=== PATIENT | male | born 1960 | race Caucasian/White ===

== ENCOUNTER 2016-09-28 01:01 | Emergency (ER) | payer SELFPAY ==
[~2016-09-28] VITALS: Ht 172.7 cm; Wt 77.1 kg
[2016-09-28 01:16] VITALS: BP 121/52
--- NOTE | 2016-09-28 01:16 | NUR ---
PT BIB [employer]/RA 39, PT C/O "HAVING THE SHAKES, LAST HAD A DRINK X 3 DAYS AGO" PT AOX3 RR EVEN AND UNLABORED. NO SOB NOTED. NAD NOTED. NO NVD AT THIS TIME. PT NOT DIAPHORETIC. PT WAITING FOR MD GRIMALDO. PT PLACED ON MONITOR. [employer] AT BEDSIDE
--- NOTE | 2016-09-28 01:17 | NUR ---
DR. BLANDON AT BEDSIDE FOR EVAL.
[2016-09-28] MEDS ORDERED: CHLORDIAZEPOXIDE HCL 25 MG CAPSULE ONE (01:18)
--- NOTE | 2016-09-28 01:25 | NUR ---
PT MEDICATED. PT D/C UNDER [employer] CUSTODY. Written and verbal after care instructions given. Patient verbalizes understanding of instruction.
[2016-09-28] MEDS ORDERED: CHLORDIAZEPOXIDE HCL 25 MG CAPSULE PO ONE (01:30)
== END 2016-09-28 01:28 ==
LOC: ER 01:03
DX: Z00.8 Encounter for other general examination (principal)
CPT/HCPCS: A4606; Z7610

== ENCOUNTER 2017-02-03 15:43 | Inpatient (IN) | payer MEDICAID ==
[~2017-02-03] VITALS: Ht 167.6 cm; Wt 82.6 kg
[2017-02-03] MEDS ORDERED: ONDANSETRON HCL/PF 4 MG/2 ML VIAL IVP ONE (16:00)
[2017-02-03] MEDS ORDERED: Thiamine 100 MG in IV D5W 50 ML IV SCH (16:00)
[2017-02-03] MEDS ORDERED: IV NS 0.9% 1,000 ML BAG IV ONE (16:00)
--- NOTE | 2017-02-03 16:30 | NUR ---
PATIENT TAKEN TO CT VIA WHEELCHAIR.
--- NOTE | 2017-02-03 16:30 | NUR ---
PATIENT PRESENTS TO ER DUE TO SYNCOPAL EPISODE. PATIENT ADMITS TO USING ALCOHOL. PATIENT IS A/OX4 AT THIS TIME. BREATHING EVEN AND UNLABORED. NO SOB. VITALS STABLE. SAFETY AND COMFORT MEASURES IN PLACE. AWAITING MD ORDER.
--- NOTE | 2017-02-03 16:40 | NUR ---
PATIENT RETURNED FROM CT.
[2017-02-03 17:14] LABS: APPEARANCE,URINE CLEAR (CLEAR); BILIRUBIN,URINE NEGATIVE (NEGATIVE); BLOOD, URINE NEGATIVE Ery/uL (NEGATIVE); COLOR,URINE YELLOW (YELLOW); KETONES,URINE NEGATIVE (NEGATIVE); LEUKOCYTE ESTERASE ,URINE NEGATIVE (NEGATIVE); NITRITE, URINE NEGATIVE (NEGATIVE); PH,URINE 5.5 (5.0-8.0); PROTEIN,URINE NEGATIVE (NEGATIVE); UGLUCOSE NEGATIVE (NEGATIVE); UROBILINOGEN,URINE 0.2 EU/dL (0.2)
[2017-02-03] MEDS ORDERED: ONDANSETRON HCL/PF 4 MG/2 ML VIAL ONE (17:34)
[2017-02-03 17:41] LABS: BASOPHILS % (AUTO) 0.5 % (0.0-2.0); EOSINOPHILS # (AUTO) 0.1 /CMM (0.0-0.7); EOSINOPHILS % (AUTO) 1.8 % (0.0-6.0); HEMATOCRIT 34 % (39-51); HEMOGLOBIN 11.2 g/dL (13.5-17.5); LYMPHOCYTES # (AUTO) 2.3 /CMM (0.8-4.8); LYMPHOCYTES % (AUTO) 31.4 % (20.0-44.0); MEAN CORPUSCULAR HEMOGLOBIN 32 PG (26.0-33.0); MEAN CORPUSCULAR HGB CONC 33 g/dl (31.0-36.0); MEAN CORPUSCULAR VOLUME 99 fL (80-96); MONOCYTES # (AUTO) 0.5 /CMM (0.1-1.30); MONOCYTES % (AUTO) 7.2 % (2.0-12.0); NEUTROPHILS # (AUTO) 4.3 /CMM (1.8-8.9); NEUTROPHILS % (AUTO) 59.1 % (43.0-81.0); PLATELET COUNT (AUTO) 319 /CMM (150-450); RED BLOOD CELL COUNT(AUTO) 3.45 MIL/uL (4.5-6.0); WHITE BLOOD COUNT (AUTO) 7.2 K/uL (4.3-11.0)
[2017-02-03 18:05] LABS: ALANINE AMINOTRANSFERASE 37 U/L (12-78); ALBUMIN 3.7 g/dL (3.4-5.0); ALCOHOL, BLOOD 87 mg/dL (0-0); ALKALINE PHOSPHATASE 65 U/L (46-116); ASPARTATE AMINOTRANSFERASE 30 U/L (15-37); BILIRUBIN,DIRECT 0.1 mg/dL (0.0-0.2); BILIRUBIN,TOTAL 0.2 mg/dL (0.2-1.0); CALCIUM, SERUM 8.9 mg/dL (8.5-10.1); CARBON DIOXIDE 29 mmol/L (21-32); CHLORIDE 103 mmol/L (98-107); CREATININE 0.7 mg/dL (0.6-1.3); GLUCOSE 102 mg/dL (74-106); POTASSIUM 4.2 mmol/L (3.5-5.1); SODIUM SERUM 138 mmol/L (136-145); TOTAL PROTEIN, SERUM 7.8 g/dL (6.4-8.2)
[2017-02-03 18:11] LABS: SALICYLATE 2.4 mg/dL (2.8-20.0)
[2017-02-03 18:12] LABS: ACETAMINOPHEN < 10 ug/ml (10-30)
[2017-02-03 18:16] LABS: UREA NITROGEN, BLOOD 14 mg/dL (7-18)
--- NOTE | 2017-02-03 18:29 | NUR ---
PAGED NOVELTY CHAIN MAKER PANEL
[2017-02-03] MEDS ORDERED: Magnesium 1GM/D5W 100ML PREMIX 100 ML IV ONE (18:35)
[2017-02-03] MEDS: Magnesium 1GM/D5W 100ML PREMIX 100 ML IV SCH ×2 (18:40→19:33)
--- NOTE | 2017-02-03 19:15 | NUR ---
REPORT GIVEN TO PREETHI RAM FOR BRI.
[2017-02-03 19:30] VITALS: BP 122/73
[2017-02-03] MEDS ORDERED: HYDROCODONE/APAP 5/325MG 1 EACH TABLET PO PRN (19:30)
[2017-02-03] MEDS ORDERED: ONDANSETRON HCL/PF 4 MG/2 ML VIAL IVP PRN (19:30)
[2017-02-03] MEDS ORDERED: Z GUARD REMEDY 2 OZ OINT TP PRN (19:30)
[2017-02-03] MEDS ORDERED: MAG HYDROX/AL HYDROX/SIMETH 30 ML UDC PO PRN (19:30)
[2017-02-03] MEDS ORDERED: MAGNESIUM HYDROXIDE 30 ML UDC PO PRN (19:30)
[2017-02-03] MEDS ORDERED: ACETAMINOPHEN 325 MG TABLET PO PRN (19:30)
[2017-02-03] MEDS ORDERED: ZOLPIDEM TARTRATE 5 MG TABLET PO PRN (19:30)
--- NOTE | 2017-02-03 19:30 | NUR ---
ELEMENTARY MATH TUTOR OPENING NOTES: RECEIVED PT FROM RNGRACIELA. PT IS A/OX3-4. PT HAS IV ON R AC#18G AND IS CURRENTLY BEING INFUSED WITH 1 BAG OF MAGNESIUM. AWAITING ADMISSION ORDERS. CALL LIGHT WITHIN PT'S REACH. BED KEPT IN LOW, LOCKED POSITION, AND SIDE RAILS X 2 UP. WILL CONTINUE TO MONITOR PT.
--- NOTE | 2017-02-03 19:30 | NUR ---
2ND BAG OF MAGNESIUM ENDORSE TO PREETHI RAM. 1ST BAG INFUSING IN ER.
--- NOTE | 2017-02-03 19:36 | NUR ---
PATIENT TRANSPORTED TO [facility] FOR ADMISSION. PREETHI RAM TO PROVIDE BRI.
[2017-02-03] MEDS ORDERED: Magnesium 1GM/D5W 100ML PREMIX 100 ML IV SCH (20:00)
[2017-02-03] MEDS: IV NS 0.9% 1,000 ML IV PRN (20:15)
[2017-02-03 20:30] VITALS: BP 122/73
[2017-02-03] MEDS ORDERED: LORAZEPAM INJ 2 MG/ML VIAL IV PRN (21:00)
[2017-02-04] VITALS: BP 96/50
[2017-02-04 04:00] VITALS: BP 135/64
--- NOTE | 2017-02-04 07:15 | NUR ---
SERVICE STATION CASHIER CLOSING NOTES: ALL NEEDS WERE ATTENDED AND ANTICIPATED FOR. PT HAS IV ON R AC#18G AND IS BEING INFUSED WITH NS AT 75ML/HR. PT IS ON TELE MONITOR AND IS SR 60S. URINAL AT BEDSIDE AND OUTPUT WAS 1750ML. CALL LIGHT WITHIN PT'S REACH. BED KEPT IN LOW, LOCKED POSITION, AND SIDE RAILS X 2 UP. ENDORSED TO AM NURSE FOR BRI.
[2017-02-04] MEDS ORDERED: PANTOPRAZOLE 40 MG TABLET.DR PO SCH (07:30)
--- NOTE | 2017-02-04 07:30 | NUR ---
RN OPEN NOTES RECEIVED REPORT FROM CEMENTER NURSE. PATIENT IS IN BED, ALERT AND ORIENTED TO NAME, PLACE AND TIME. BED IN LOW POSITION, LOCKED AND TWO SIDE RAILS ARE UP. NO SIGNS AND SYMPTOMS OF DISTRESS OR PAIN. WILL CONTINUE TO ASSESS AND MONITOR PATIENT THROUGH OUT MY SHIFT.
[2017-02-04 08:00] VITALS: BP 137/54
[2017-02-04 08:10] LABS: CALCIUM, SERUM 8.5 mg/dL (8.5-10.1); CREATININE 0.6 mg/dL (0.6-1.3); MAGNESIUM 1.7 mg/dL (1.8-2.4); POTASSIUM 4.6 mmol/L (3.5-5.1)
[2017-02-04 10:04] LABS: BASOPHILS % (AUTO) 0.8 % (0.0-2.0); EOSINOPHILS # (AUTO) 0.2 /CMM (0.0-0.7); EOSINOPHILS % (AUTO) 2.8 % (0.0-6.0); HEMATOCRIT 32 % (39-51); HEMOGLOBIN 10.5 g/dL (13.5-17.5); LYMPHOCYTES # (AUTO) 1.9 /CMM (0.8-4.8); LYMPHOCYTES % (AUTO) 32.7 % (20.0-44.0); MEAN CORPUSCULAR HEMOGLOBIN 33 PG (26.0-33.0); MEAN CORPUSCULAR HGB CONC 33 g/dl (31.0-36.0); MEAN CORPUSCULAR VOLUME 99 fL (80-96); MONOCYTES # (AUTO) 0.7 /CMM (0.1-1.30); MONOCYTES % (AUTO) 12.3 % (2.0-12.0); NEUTROPHILS # (AUTO) 2.9 /CMM (1.8-8.9); NEUTROPHILS % (AUTO) 51.4 % (43.0-81.0); PLATELET COUNT (AUTO) 250 /CMM (150-450); RDW COEFFICIENT OF VARIATION 16.6 (11.5-15.0); RED BLOOD CELL COUNT(AUTO) 3.21 MIL/uL (4.5-6.0); WHITE BLOOD COUNT (AUTO) 5.7 K/uL (4.3-11.0)
[2017-02-04] MEDS: IV NS 0.9% 1,000 ML IV PRN (11:23)
[2017-02-04 12:00] VITALS: BP 132/66
--- NOTE | 2017-02-04 12:27 | NUR ---
Social service consult for homelessness. Pt. is a 56 year old male who was admitted to [facility] for syncope. SW met with pt. bedside. Pt. is alert and oriented x4. Pt. is pleasant and cooperative with SW during the assessment. Pt. states he is homeless and has been homeless for a while now. Pt. was but is and has a son who is a clinical consultant in [place] and a daughter. Pt. stated his threw him out of the house and he has been homeless since then. Pt. is a heavy alcohol drinker and drinks vodka daily. Pt. has no source of income at this time. Pt. is originally from [place]. Pt. denies suicidal/homicidal ideations and visual/auditory hallucinations at this time. FRAN offered pt. long term placement and homeless resources, however pt. declined. Pt. states he will go back to the streets. SW tried to encourage pt. to take the homeless resources, pt. still declined. FRAN informed pt's RN Yuridia that pt. wants to be discharged back to the streets once medically cleared and declined homeless resources and long term placement.
[2017-02-04] MEDS: Magnesium 1GM/D5W 100ML PREMIX 100 ML IV SCH ×2 (12:36→13:38)
[2017-02-04 16:00] VITALS: BP 142/83
--- NOTE | 2017-02-04 19:09 | NUR ---
TELE / RN CLOSING NOTES PENDING DISCHARGE, PATIENT REFUSED TO GO PATIENT IS IN BED. ALERT AND ORIENTED TO NAME , PLACE AND TIME. BREATHING EVEN AND UNLABORED. NO SIGNS AND SYMPTOMS OF SHORTNESS OF BREATH OR DISTRESS NOTED. BED IN LOW AND IN LOCKED POSITION WITH CALL LIGHT IN REACH. TWO SIDE RAILS ARE UP. WILL ENDORSED TO INTERNATIONAL BANK MANAGER NURSE TO [facility].
--- NOTE | 2017-02-04 19:32 | NUR ---
POWER MACHINE OPERATOR NOTES PATIENT DISCHARGE NOTES RECEIVED AND CARRIED OUT. NO SIGNS AND SYMPTOMS OF DISTRESS, DENIED PAIN. ALL PERSONAL BELONGING WITH PATIENT AT TIME OF DISCHARGE. BELONGING LIST SIGNED AND PLACED IN THE CHART. DISCHARGE INSTRUCTION EXPLAINED TO PATIENT. PATIENT SIGNED ALL DISCHARGE PAPERWORK, FORMS PLACED IN THE CHART. PATIENT REFUSED TO GO TO A CORRECTION AND WANTED TO GO BACK TO THE STREET AT THE [facility]. SOFTWARE DESIGN MANAGER AND MD MADE AWARE. PICTURES WERE TAKEN AND PLACED IN THE CHART. IV SITE REMOVED. ID BAND REMOVED. PATIENT ESCORTED TO MAIN LOBBY WITH A WALKER AND RN. PATIENT STATED HE DOESN'T HAVE A PCP AT THIS TIME. PATIENT ADVISED TO FOLLOW UP WITH A PCP FOR BRI.
== END 2017-02-04 19:32 | disposition home or self-care (01) | DRG 775 ==
LOC: ER 15:44 → TELE 17:56
PROVIDERS: ADMIT Internal Medicine; ATTEND Internal Medicine
DX: F10.229 Alcohol dependence with intoxication, unspecified (principal); E83.42 Hypomagnesemia; I10 Essential (primary) hypertension; E11.9 Type 2 diabetes mellitus without complications; D64.9 Anemia, unspecified; E78.5 Hyperlipidemia, unspecified; E86.0 Dehydration; K21.9 Gastro-esophageal reflux disease without esophagitis; F17.200 Nicotine dependence, unspecified, uncomplicated; Z59.0 Homelessness; G40.909 Epilepsy, unspecified, not intractable, without status epilepticus; Y90.4 Blood alcohol level of 80-99 mg/100 ml; W19.XXXA Unspecified fall, initial encounter; Y92.9 Unspecified place or not applicable
CPT/HCPCS: 36415; 70450-TC; 71010-TC; 80048-TC; 80061-TC; 80076-TC; 80305; 81000-TC; 83735-TC; 84100-TC; 85025-TC; 87081-TC; 93307-TC; A4606; A6402; G0480; J2405; J3411; J3475; J7030; J7042; J7060; Z7610

== ENCOUNTER 2017-06-05 10:47 | Inpatient (IN) | payer SELFPAY ==
[~2017-06-05] VITALS: Ht 167.6 cm; Wt 79.8 kg
--- NOTE | 2017-06-05 10:55 | NUR ---
[id number] FROM THE STREET FOR ETOH INTOXICATION, BS-95MG/DL. PT C/O DIZZINESS, BLOOD PRESSURE LOW. A/OX 3, BUT DROWSY. BREATHING EVEN AND UNLABORED. NO SOB. SAFETY AND COMFORT MEASURES IN PLACE. AWAITING MD ORDERS.
[2017-06-05] MEDS ORDERED: IV NS 0.9% 1,000 ML BAG IV ONE (11:00)
--- NOTE | 2017-06-05 11:05 | NUR ---
NEW IV STARTED ON RAC, 20G. BLOOD DRAWN AND SENT TO LAB.
[2017-06-05 11:11] LABS: BASOPHILS % (AUTO) 0.9 % (0.0-2.0); EOSINOPHILS % (AUTO) 0.6 % (0.0-6.0); HEMATOCRIT 35 % (39-51); LYMPHOCYTES # (AUTO) 0.3 /CMM (0.8-4.8); LYMPHOCYTES % (AUTO) 7.3 % (20.0-44.0); MEAN CORPUSCULAR HEMOGLOBIN 32 PG (26.0-33.0); MEAN CORPUSCULAR HGB CONC 34 g/dl (31.0-36.0); MEAN CORPUSCULAR VOLUME 93 fL (80-96); MONOCYTES # (AUTO) 0.7 /CMM (0.1-1.30); MONOCYTES % (AUTO) 17.3 % (2.0-12.0); NEUTROPHILS # (AUTO) 3.1 /CMM (1.8-8.9); NEUTROPHILS % (AUTO) 73.9 % (43.0-81.0); PLATELET COUNT (AUTO) 200 /CMM (150-450); RDW COEFFICIENT OF VARIATION 16.8 (11.5-15.0); RED BLOOD CELL COUNT(AUTO) 3.79 MIL/uL (4.5-6.0); WHITE BLOOD COUNT (AUTO) 4.1 K/uL (4.3-11.0)
[2017-06-05 11:18] LABS: CREATININE 0.6 mg/dL (0.6-1.3)
[2017-06-05 11:27] LABS: ALBUMIN 3.5 g/dL (3.4-5.0); BILIRUBIN,DIRECT 0.1 mg/dL (0.0-0.2); BILIRUBIN,TOTAL 0.3 mg/dL (0.2-1.0); SALICYLATE 3.6 mg/dL (2.8-20.0); TOTAL PROTEIN, SERUM 7.8 g/dL (6.4-8.2)
--- NOTE | 2017-06-05 11:55 | NUR ---
URINE OBTAINED AND SENT TO LAB.
[2017-06-05 12:28] LABS: APPEARANCE,URINE Clear (CLEAR); BILIRUBIN,URINE Negative (NEGATIVE); BLOOD, URINE Negative Ery/uL (NEGATIVE); COLOR,URINE Yellow (YELLOW); KETONES,URINE Negative (NEGATIVE); LEUKOCYTE ESTERASE ,URINE Negative (NEGATIVE); NITRITE, URINE Negative (NEGATIVE); PH,URINE 5.5 (5.0-8.0); PROTEIN,URINE Negative (NEGATIVE); UGLUCOSE Negative (NEGATIVE); UROBILINOGEN,URINE 0.2 EU/dL (0.2)
--- NOTE | 2017-06-05 18:25 | NUR ---
PATIENT MEDICATED PER MD ORDERS. VITALS REMAIN STABLE. WILL CONTINUE TO MONITOR.
[2017-06-05] MEDS ORDERED: LORAZEPAM INJ 2 MG/ML VIAL ONE (18:26)
[2017-06-05] MEDS ORDERED: LORAZEPAM INJ 2 MG/ML VIAL IV ONE (18:30)
--- NOTE | 2017-06-05 19:02 | NUR ---
REPORT GIVEN TO LUIS ORO FOR BRI.
--- NOTE | 2017-06-05 19:20 | NUR ---
REPORT RECEIVED FROM PREETHI OWENS FOR BRI.
--- NOTE | 2017-06-05 19:24 | NUR ---
DR. OVALLES SPOKE TO DR. AGUILERA REGARDING ADMISSION
[2017-06-05] MEDS ORDERED: MAGNESIUM HYDROXIDE 30 ML UDC PO PRN (21:00)
[2017-06-05] MEDS ORDERED: ZOLPIDEM TARTRATE 5 MG TABLET PO PRN (21:00)
[2017-06-05] MEDS ORDERED: IV D5/ 0.9% NACL 1,000 ML IV PRN (21:00)
[2017-06-05] MEDS ORDERED: Z GUARD REMEDY 2 OZ OINT TP PRN (21:00)
[2017-06-05] MEDS ORDERED: HYDROCODONE/APAP 5/325MG 1 EACH TABLET PO PRN (21:00)
[2017-06-05] MEDS ORDERED: Folic acid 1 MG in IV D5W 50 ML IV SCH (21:00)
[2017-06-05] MEDS ORDERED: ONDANSETRON HCL/PF 4 MG/2 ML VIAL IVP PRN (21:00)
[2017-06-05] MEDS ORDERED: MAG HYDROX/AL HYDROX/SIMETH 30 ML UDC PO PRN (21:00)
--- NOTE | 2017-06-05 21:17 | NUR ---
REPORT GIVEN TO THE FLOOR NURSE - CONTINUE PLAN OF CARE.
--- NOTE | 2017-06-05 21:25 | NUR ---
RN NOTES RECEIVED PT VIA IRENARMARIE FROM [facility] AT 2125. PT CAN WALK TO HIS BED, PT IS A/O X 3 WITH PERIODS OF CONFUSION, ETOH INTOXICATION. TOLERATING ROOM AIR 96%, NO S/S OF DISTRESS. NO COMPLAINS OF PAIN. HEAD TO TOE SKIN ASSESSMENT UNABLE TO ASSESS PT REFUSES SKIN ASSESSMENT AND PICTURE TO BE TAKEN DESPITE RISKS AND BENEFITS. PT DOESNT WANT TO REMOVE HIS PANTS AND SHIRT. SAFETY MEASURES ARE IN PLACE, CALL LIGHT IS IN REACH. WILL CONTINUE TO MONITOR.
[2017-06-05 22:00] VITALS: BP 108/59
[2017-06-05] MEDS ORDERED: Thiamine 100 MG/ML VIAL ONE (22:46)
--- NOTE | 2017-06-05 22:56 | NUR ---
SHINGLE PACKER NOTES FOLIC ACID 1 MG IV NON ADMINISTRATION PER LICENSED TAX CONSULTANT NOT IN STOCK AT THE NIGHT LOCKER CHARGE NURSE ALSO AWARE. Addendum: 06/06/17 at 0334 by ARUNA FLORES RN Jai DE LEON AWARE SPOKE TO DR. WILLY VANCE
[2017-06-05] MEDS: Thiamine 100 MG in IV D5W 50 ML IV SCH (23:12)
[2017-06-05 23:31] VITALS: BP 103/52
[2017-06-06] VITALS (7 sets, daily range): BP systolic 103–136; BP diastolic 51–79
[2017-06-06] MEDS ORDERED: ACETAMINOPHEN 325 MG TABLET ONE (04:07)
[2017-06-06] MEDS: ACETAMINOPHEN 325 MG TABLET PO PRN ×2 (04:10→13:06)
--- NOTE | 2017-06-06 06:18 | NUR ---
[employer] CLOSING NOTES COMFORTABLY ASLEEP IN BED AND EASILY AWAKEN, TOLERATING ROOM AIR 98% RESPIRATIONS EVEN AND UNLABORED. NOT IN S/S DISTRESS. NO DT'S THROUGHOUT THE SHIFT. KEPT CLEAN AND DRY AND COMFORTABLE, GOOD SKIN CARE PROVIDED. ALL NURSING CARE RENDERED. NEEDS ATTENDED AND ANTICIPATED, FREQUENT VISUAL CHECK DONE FOR SAFETY EVERY 2 HOURS. ON LOW BED AT ALL TIMES TO ENSURE SAFETY. SAFE HAZARD FREE ENVIRONMENT PROVIDED. CALL LIGHT WITHIN EASY TO REACH. WILL ENDORSE NEXT SHIFT CONTINUITY OF CARE. ON TELE MONITOR SR 95'S
--- NOTE | 2017-06-06 06:27 | NUR ---
PT MENTAL STATUS NOW MORE ALERT AND ORIENTED X3
[2017-06-06 07:28] LABS: CREATININE 0.9 mg/dL (0.6-1.3); PHOSPHORUS 2.8 mg/dL (2.5-4.9); POTASSIUM 4.1 mmol/L (3.5-5.1)
--- NOTE | 2017-06-06 07:36 | NUR ---
ASBESTOS WORKER NOTES. PT RECEIVED A&0X3, ALERT AND RESTING IN BED. PT TOLERATING ROOM AIR WITH NO SOB. PT REPORTING 2/10 GENERALIZED PAIN. PT WITH IVC AT R AC FLUSHED PATENT WITH SL. PT WITH FOUL ODOR AND WILL NOT REMOVE CLOTHES. ENDORSED PT REFUSED SKIN ASSESSMENT, QUESTIONED AGAIN AND AGAIN REFUSED. BED IN LOWEST LOCKED POSITION WITH HANDRAILSX2 AND CALL NICHOLSON WITHIN REACH.PT BRIEFED ON TODAY'S POC, PT WITHOUT CONCERNS OR COMPLAINTS AT THIS TIME.
[2017-06-06 07:38] LABS: THYROID STIMULATING HORMONE 0.568 uIU/mL (0.358-3.74)
--- NOTE | 2017-06-06 07:49 | NUR ---
SALARY MANAGER NOTES. CRITICAL LAB VALUE MAG 0.9 CALLED TO [facility] ON-CALL DR GROUP PER PROTOCOL AND INTERVENTION FILLED.
[2017-06-06 07:55] LABS: HEMATOCRIT 32 % (39-51); HEMOGLOBIN 10.5 g/dL (13.5-17.5); MEAN CORPUSCULAR HEMOGLOBIN 31 PG (26.0-33.0); MEAN CORPUSCULAR HGB CONC 33 g/dl (31.0-36.0); MEAN CORPUSCULAR VOLUME 95 fL (80-96); PLATELET COUNT (AUTO) 147 /CMM (150-450); RDW COEFFICIENT OF VARIATION 17.9 (11.5-15.0); RED BLOOD CELL COUNT(AUTO) 3.35 MIL/uL (4.5-6.0); WHITE BLOOD COUNT (AUTO) 3.2 K/uL (4.3-11.0)
[2017-06-06 07:57] LABS: MAGNESIUM 0.9 mg/dL (1.8-2.4)
[2017-06-06] MEDS ORDERED: Magnesium 1 GM/2 ML VIAL IV STA (08:06)
[2017-06-06] MEDS ORDERED: Magnesium 1GM/D5W 100ML PREMIX PIGGYBACK IV ONE (08:30)
[2017-06-06] MEDS: Magnesium 1GM/D5W 100ML PREMIX 100 ML IV SCH ×4 (09:06→15:19)
[2017-06-06] MEDS: Folic acid 1 MG in IV D5W 50 ML IV SCH (09:13)
[2017-06-06 10:17] LABS: LYMPHOCYTES % (MANUAL) 37 % (16-48); MONOCYTES % (MANUAL) 4 % (0-11.0); NEUTROPHILS % (MANUAL) 59 (42-76)
--- NOTE | 2017-06-06 11:00 | NUR ---
CANE FURNITURE MAKER NOTES. PT RIPPED OUT IVC.
--- NOTE | 2017-06-06 11:47 | NUR ---
MACHINE II ENGRAVER NOTES. PT ++ MALODOROUS, REMIGIO OK TO PAUSE TELE MONITORING FOR SHOWER. PT RELUCTANT AND UNCOOPERATIVE. PT SHOWERING.
[2017-06-06] MEDS: CHLORDIAZEPOXIDE HCL 25 MG CAPSULE PO SCH ×2 (13:06→17:09)
--- NOTE | 2017-06-06 13:14 | NUR ---
PAPER PATTERN INSPECTOR NOTES. NEW IVC INSITU, L HAND G 22, INTACT AND OPERATIONAL.
--- NOTE | 2017-06-06 13:30 | NUR ---
QUE ORO NOTES. PT HAS AGAIN REMOVED IV. CARPET RENOVATOR REMIGIO INFORMED, CARPET RENOVATOR REQUESTING MAGNESIUM OXIDE 400MG PO. AWARE OF NO IVC STATUS. WILL ORDER. Addendum: 06/06/17 at 1606 by ANTHONY PÉREZ RN TIME ADDENDUM [id number]
--- NOTE | 2017-06-06 14:05 | NUR ---
TEL NOTES. PT AGAIN DISCONNECT IV WITHOUT ASKING OR NOTIFYING. PT REQUESTED AGAIN TO COMPLY WITH RULES.
[2017-06-06] MEDS: LORAZEPAM INJ 2 MG/ML VIAL IV PRN (14:34)
--- NOTE | 2017-06-06 14:38 | NUR ---
CORRESPONDENCE REVIEW CLERK NOTES. PT AGAIN DISCONNECT IV WITHOUT ASKING OR NOTIFYING. PT REQUESTED AGAIN TO COMPLY WITH RULES.
[2017-06-06] MEDS ORDERED: MAGNESIUM OXIDE 400 MG TABLET PO ONE (16:30)
--- NOTE | 2017-06-06 18:32 | NUR ---
TEL RN CLOSING NOTES. PT A&0X2-3, VERY CONFUSED AT TIMES AND UNABLE TO RECALL OR COMPLY WITH DIRECTIONS. PT TOLERATING ROOM AIR WITH NO SOB. PT REPORTING NO PAIN. PT IS WITHOUT IVC PT CONTINUES TO REMOVE THEM, PLATE FORMER REMIGIO AWARE. PT IS WITHOUT TREMORS AT THIS TIME, ENDORSED TO NIGHT NURSE TO CONTINUE TO MONITOR FOR DTs. PT BED IN LOWEST LOCKED POSITION WITH HANDRAILSX3 AND CALL NICHOLSON WITHIN REACH, FREQUENT OBSERVATION REQUIRED FOR SAFETY. ALL DAY SHIFT DUTIES ATTENDED TO AND PT IS WITHOUT CONCERN OR COMPLAINT AT THIS TIME, WILL ENDORSE TO NIGHT NURSE.
--- NOTE | 2017-06-06 19:44 | NUR ---
TELERN FULLY AWAKE, NO NEEDS FOR NOW. SAFETY PRECAUTIONS EMPHASIZED, REVIEWED CALL LIGHT USE. STATED WILL CALL IF NEEDED. CLOSELY WATCHED FOR POSSIBLE DTs.
[2017-06-06] MEDS: Thiamine 100 MG in IV D5W 50 ML IV SCH (21:46)
--- NOTE | 2017-06-06 23:30 | NUR ---
TELERN SLEEPS ON AND OFF, STILL WANTED TO HAVE FOOD. NO DTS. STABLE FOR NOW.
[2017-06-07] VITALS: BP 109/53
[2017-06-07 01:08] VITALS: BP 109/53
[2017-06-07 04:00] VITALS: BP 92/68
--- NOTE | 2017-06-07 06:30 | NUR ---
TELERN FULLY AWAKE, ALL NEEDS ATTENDED STABLE.
--- NOTE | 2017-06-07 07:30 | NUR ---
[employer]IDD[employer] SCHOOL ART TEACHER OPENING NOTES. RECEIVED PT A&0X2-3, UKRAINIAN/ROMANIAN SPEAKING. TELE SR. PT TOLERATING ROOM AIR WITH NO SOB. PT REPORTING NO PAIN. PT NOW WITH IVC AT L WRIST G#22, INTACT AND NS FLUSHED PATENT. PT REQUESTEDX3 NOT REMOVE IT. PT WITHOUT TREMORS AT THIS TIME AND IS A FEBRILE. PT CONTINUES TO REFUSE SKIN ASSESSMENT. PT BRIEFED ON TODAY'S POC AND [facility] EXPECTATIONS/RULES EXPLAINED. PT BED IN LOWEST LOCKED POSITION WITH HANDRAILSX2 AND CALL NICHOLSON WITHIN REACH. PT WITHOUT CONCERN OR COMPLAINT AT THIS TIME.
[2017-06-07 07:34] LABS: CREATININE 0.9 mg/dL (0.6-1.3); MAGNESIUM 1.5 mg/dL (1.8-2.4); PHOSPHORUS 3.5 mg/dL (2.5-4.9); POTASSIUM 4.3 mmol/L (3.5-5.1)
[2017-06-07 07:45] LABS: BASOPHILS % (AUTO) 1.4 % (0.0-2.0); EOSINOPHILS % (AUTO) 0.9 % (0.0-6.0); HEMATOCRIT 31 % (39-51); HEMOGLOBIN 10.5 g/dL (13.5-17.5); LYMPHOCYTES # (AUTO) 1.3 /CMM (0.8-4.8); LYMPHOCYTES % (AUTO) 40.5 % (20.0-44.0); MEAN CORPUSCULAR HEMOGLOBIN 32 PG (26.0-33.0); MEAN CORPUSCULAR HGB CONC 34 g/dl (31.0-36.0); MEAN CORPUSCULAR VOLUME 95 fL (80-96); MONOCYTES # (AUTO) 0.6 /CMM (0.1-1.30); MONOCYTES % (AUTO) 19.7 % (2.0-12.0); NEUTROPHILS # (AUTO) 1.2 /CMM (1.8-8.9); NEUTROPHILS % (AUTO) 37.5 % (43.0-81.0); PLATELET COUNT (AUTO) 142 /CMM (150-450); RDW COEFFICIENT OF VARIATION 17.9 (11.5-15.0); RED BLOOD CELL COUNT(AUTO) 3.26 MIL/uL (4.5-6.0); WHITE BLOOD COUNT (AUTO) 3.2 K/uL (4.3-11.0)
[2017-06-07 08:00] VITALS: BP 119/73
[2017-06-07] MEDS: CHLORDIAZEPOXIDE HCL 25 MG CAPSULE PO SCH ×3 (09:05→17:55)
[2017-06-07] MEDS: ACETAMINOPHEN 325 MG TABLET PO PRN (09:05)
[2017-06-07] MEDS: Folic acid 1 MG in IV D5W 50 ML IV SCH (09:06)
[2017-06-07] MEDS: LORAZEPAM INJ 2 MG/ML VIAL IV PRN (10:58)
[2017-06-07] MEDS: Magnesium 1GM/D5W 100ML PREMIX 100 ML IV SCH ×2 (10:59→12:36)
--- NOTE | 2017-06-07 11:45 | NUR ---
Social service consult requested by Dr. Islas for homelessness. Pt. is a 56 year old male who was admitted to [facility] for alcohol withdrawal. FRAN met with pt. bedside. Pt. is alert and oriented x 4. Pt. appeared disheveled. FRAN is familiar with pt. from a previous admission in January 2017. Social service consult for homelessness. Pt. is a 56 year old male who was admitted to [facility] for syncope. FRAN met with pt. bedside. Pt. states he is homeless and has been homeless for a while now. Pt. was but is and has a son who is a billet grinder in [place] and a daughter. Pt. is an alcoholic and drinks vodka daily. Pt. has no source of income at this time. Pt. is originally from [facility]. Pt. denies suicidal/homicidal ideations and visual/auditory hallucinations at this time. FRAN offered pt. winter correction placement and homeless resources, however pt. declined. Pt. states he will go back to the streets. FRAN gave pt. homeless resources such as winter correction list and other homeless resources that included food resources. Pt. accepted the resources. Pt. stated he would require a bus token upon discharge. FRAN informed nursing supervisor extrusion Morena who will provide scrap charger Diane with the bus token. Homeless Patient Waiver Form was signed by pt. and a copy was placed in pt's chart. FRAN updated Med Surg 3 dry molder Diane regarding pt's discharge plan.
[2017-06-07 12:11] LABS: LYMPHOCYTES % (MANUAL) 30 % (16-48); MONOCYTES % (MANUAL) 8 % (0-11.0); NEUTROPHILS % (MANUAL) 62 (42-76)
[2017-06-07 15:05] VITALS: BP 102/64
--- NOTE | 2017-06-07 18:09 | NUR ---
MS RN CLOSING NOTES. PT PREPARED FOR D/C. PT REMAINS A&0X2-3, PT TOLERATING ROOM AIR WITH NO SOB, PT REPORTING NO PAIN, PT REFUSED ALL SKIN ASSESSMENTS BUT DENIES SYMPTOMS, PT IVC REMOVED WITH AND NAD AT SITE. PT REPORTS LIVING IN CAR, HOMELESS WAIVER SIGNED AND PT REFUSING FACILITY PLACEMENT OR FURTHER ASSISTANCE. ALL PATIENT BELONGINGS ACCOUNTED FOR AND DOCUMENT SIGNED BY PAT AND STAFFX2, PT BRIEFED ON [facility] D/C PACKET AND REORIENTATED WITH DOCUMENTS PROVIDED BY SOCIAL WORKERS AND VERBALIZES UNDERSTANDING AND INTENT TO FOLLOW UP WITH PRIMARY CARE PT WITHOUT CONCERN OR COMPLAINT AT THIS TIME. PT PROVIDED WITH [facility] TRANSPORT TO PT CAR, PATHOLOGY TRANSCRIPTIONIST ESCORT TO [facility].
[2017-06-07] MEDS ORDERED: FOLIC ACID 1 MG TABLET PO SCH (21:00)
[2017-06-07] MEDS ORDERED: THIAMINE HCL 100 MG TABLET PO SCH (21:00)
== END 2017-06-07 18:13 | disposition home or self-care (01) | DRG 897 ==
LOC: ER 10:48 → TELE 20:20 → MED 06-07 13:36
DX: F10.229 Alcohol dependence with intoxication, unspecified (principal); E83.42 Hypomagnesemia; E78.5 Hyperlipidemia, unspecified; E11.9 Type 2 diabetes mellitus without complications; D64.9 Anemia, unspecified; D72.819 Decreased white blood cell count, unspecified; G40.909 Epilepsy, unspecified, not intractable, without status epilepticus; Z59.0 Homelessness; Y90.8 Blood alcohol level of 240 mg/100 ml or more; K21.9 Gastro-esophageal reflux disease without esophagitis; I10 Essential (primary) hypertension
CPT/HCPCS: 36415; 80048-TC; 80061-TC; 80076-TC; 80305; 81000-TC; 83735-TC; 84100-TC; 84443-TC; 85025-TC; 87081-TC; A4606; G0480; J2060; J2405; J3411; J3475; J3490; J7030; J7042; J7060; Z7610